=== PATIENT | female | born 1980 | race Caucasian/White ===

== ENCOUNTER 2021-06-20 20:32 | Emergency (ER) | payer SELFPAY ==
--- NOTE | 2021-06-20 20:41 | PC.NURSE ---
Patient brought in by EMS. Patient moved over to the stretcher, magazine writer was getting ready to connect patient to the cardiac monitors, pulse ox, and blood pressure cuff however, patient asked if she could use the restroom. CARYN Maldonado walked patient to the restroom, when patient was done with the restroom she handed CARYN Maldonado a cup with clear warm liquid in it, patient stated, I don't want to be treated, so bye. Patient then proceeded to walk out the EMS doors. Case Fitter margaux Pineda RN charge nurse aware of the situation and patient left. Dr. Carr also aware.
--- NOTE | 2021-06-20 20:54 | PC.NURSE ---
Pt eloped through EMS doors per pt's RN.
== END 2021-06-20 21:12 | disposition left against medical advice (07) ==
LOC: ANHED 20:58
DX: T42.4X1A Poisoning by benzodiazepines, accidental (unintentional), initial encounter (principal)
CPT/HCPCS: 99199